=== PATIENT | male | born 1970 | race Caucasian/White ===

== ENCOUNTER 2021-03-26 08:48 | Outpatient (CLI) | payer OTHER, SELFPAY ==
--- NOTE | ~2021-03-26 | XR_ITS ---
XR chest 2V DATE: 03/26/2021 09:13 INDICATION: Dyspnea. History of Covid infection. TECHNIQUE: PA and lateral views COMPARISON: 03/01/2005 PA and lateral chest FINDINGS: Heart size is borderline. No pulmonary infiltrate or consolidation, pleural effusion or pul monary vascular congestion or pneumothorax. No hilar or mediastinal mass or adenopathy is evident. De generative spurring of the thoracic spine. Diffuse osteopenia. IMPRESSION: No active disease Reviewed, dictated and finalized at location A. IMPRESSION: No active disease
--- NOTE | ~2021-03-26 | CT_ITS ---
EXAMINATION: CT abdomen pelvis w con INDICATION: Umbilical hernia TECHNIQUE: Computed tomographic images of the abdomen and pelvis were obtained after the administrati on of 100 cc of Omnipaque 350 intravenous contrast. The dose-length product (DLP) was 1672.26 mGy-cm. Automated exposure control and iterative reconstruction technique were employed. COMPARISON: None available FINDINGS: The lung bases are clear. The heart size is normal. Calcified coronary artery atheroscleros is is noted. Stones are present in the nondistended gallbladder. There is a 6 mm cyst of the liver. T he spleen, pancreas, and adrenal glands are normal. The right kidney is unremarkable. A 6 mm hypoatte nuating lesion of the No pathologically enlarged abdominal or pelvic lymph nodes are identified. Ther e is no free intraperitoneal gas or evidence of bowel obstruction. The appendix is normal. The cecum is located in the right upper quadrant. There is a [place] ventral hernia just above the umbilicus containing the transverse colon and part of the ascending colon. There is mild lumbar spondylosis. IMPRESSION: 1. [place] ventral hernia containing nonobstructed transverse colon and part of the ascending colon . Reviewed, dictated and finalized at location A. IMPRESSION: 1. [place] ventral hernia containing nonobstructed transverse colon and part of the ascending colon.
--- NOTE | ~2021-03-26 | XR_ITS ---
XR foot RT min 3V DATE: 03/26/2021 09:13 INDICATION: Right foot pain, posterior plantar pain. TECHNIQUE: 4 views COMPARISON: None FINDINGS: Mild plantar and posterior calcaneal enthesopathy. No recent fracture or dislocation, perio steal reaction or bone destruction. There is chronic flattening of the head of the second and to a lesser extent third metatarsal bones. IMPRESSION: Mild plantar and posterior calcaneal enthesopathy Reviewed, dictated and finalized at location A.
== END 2021-03-26 08:49 | disposition home or self-care (01) ==
LOC: ANHIMG 08:55
PROVIDERS: PCP Family Medicine; Visit Provider Family Medicine
DX: K42.9 Umbilical hernia without obstruction or gangrene (principal); K43.9 Ventral hernia without obstruction or gangrene; M77.31 Calcaneal spur, right foot; R06.00 Dyspnea, unspecified; Z86.16 Personal history of COVID-19
CPT/HCPCS: 71046; 73630; 74177; Q9967

== ENCOUNTER 2021-04-08 07:34 | Outpatient (CLI) | payer OTHER, SELFPAY ==
--- NOTE | 2021-04-08 | ECHO_ITS ---
Patient Info Name: Jamar Iraheta Age: 50 years : 1970 Gender: Male Ht: 76 in Wt: 350 lbs BSA: 2.98 m2 HR: 68 bpm BP: 154 / 103 mmHg Technical Quality: Fair Exam Date: 04/08/2021 7:57 AM Exam Location: [facility] Patient Status: Outpatient Admit Date: 04/08/2021 Staff Ordering Physician: Merry, Ioana Mcghee MD Pipe Assembly Worker: Roro Felipe RDCS Attending Provider: Merry, Ioana Mcghee MD Referring Physician: Merry SANTOS; Exam Type: CA echo doppler color flow Study Info Indications R06.00 - Dyspnea, unspecified Complete two-dimensional, color flow and Doppler transthoracic echocardiogram is performed. Summary 1. Complete two-dimensional, color flow and Doppler transthoracic echocardiogram is performed. 2. Left ventricular systolic function is normal, estimated at 60-65%. 3. The left ventricular diastolic function is grade I diastolic dysfunction. 4. There is mild mitral valve regurgitation. 5. There is mild tricuspid valve regurgitation. 6. No pulmonary hypertension, estimated pulmonary arterial systolic pressure is 22 mmHg. 7. There is mild pulmonic regurgitation. Left Ventricle Left ventricular chamber dimension is normal. Left ventricular systolic function is normal, estimated at 60-65%. There is no increased left ventricular wall thickness. Left ventricular septal wall motion is normal. The left ventricular diastolic function is grade I diastolic dysfunction. Right Ventricle Right ventricular chamber dimension is normal. Right ventricular systolic function is normal. Left Atria Left atrial chamber dimension is normal. Right Atria Right atrial chamber dimension is normal. Atrial Septum Intact interatrial septum visualized by color flow imaging. Aortic Valve The aortic valve is trileaflet. There is no aortic valve sclerosis. There is no aortic valve stenosis. There is no aortic valve regurgitation. Pulmonic Valve The pulmonic valve is normal. There is no pulmonic valve stenosis. There is mild pulmonic regurgitation. Mitral Valve The mitral valve has normal leaflets. There is no mitral valve stenosis. There is mild mitral valve regurgitation. Tricuspid Valve The tricuspid valve leaflets are normal. There is no significant tricuspid valve stenosis. There is mild tricuspid valve regurgitation. No pulmonary hypertension, estimated pulmonary arterial systolic pressure is 22 mmHg. Pericardium/Pleural The pericardium appears normal. There is no pericardial effusion. Inferior Vena Cava Normal inferior vena cava with >50% collapse upon inspiration consistent with normal right atrial pressure, 5 mmHg. Aorta The aortic root size at the sinus of Valsalva is normal. The prox ascending aorta size is normal. Left Ventricular Outflow Tract Name Value Normal LVOT 2D LVOT Diameter 2.2 cm LVOT Doppler LVOT Peak Gradient 4 mmHg LVOT Mean Gradient 2 mmHg LVOT VTI 20 cm LVOT VTI/AV VTI Ratio 0.9 LVOT Stroke Volume
== END 2021-04-08 07:35 | disposition home or self-care (01) ==
PROVIDERS: PCP Family Medicine; Visit Provider Family Medicine
DX: R06.00 Dyspnea, unspecified (principal)
CPT/HCPCS: 93306

== ENCOUNTER 2021-04-12 10:55 | Outpatient (CLI) | payer OTHER, SELFPAY | END 2021-04-12 10:56 | disposition home or self-care (01) | LOC: ANHAUDIO 10:56 | PROVIDERS: PCP Family Medicine; Visit Provider Family Medicine | DX: H90.3 Sensorineural hearing loss, bilateral (principal) | CPT/HCPCS: 92557; 92567 ==

== ENCOUNTER 2022-02-01 22:14 | Emergency (ER) | payer OTHER, MEDICAID, SELFPAY ==
[2022-02-01 22:36] VITALS: BP 119/59; PULSE 87; RESP 16; TEMP 36.8; O2SAT 98
[2022-02-02 00:36] VITALS: BP 148/98; PULSE 79; RESP 20; O2SAT 100
[2022-02-02 01:31] LABS: Basophils Percent Auto 0.5 % (0.2-1.2); Eosinophils Absolute Auto 0.1 K/mm3 (0-0.3); Eosinophils Percent Auto 1.7 % (0-4.4); Hematocrit 40.8 % (42.0-52.0); Hemoglobin 12.8 g/dL (14.0-18.0); Immature Granulocyte Absolute 0.02 K/mm3 (0.00-0.031); Immature Granulocyte Percent A 0.3 % (0-0.5); Lymphocytes Percent Auto 20.4 % (18.3-44.2); Mean Corpuscular HGB Conc 31.4 g/dl (32-36); Mean Corpuscular Hemoglobin 26.6 pg (26-34); Mean Corpuscular Volume 84.6 fl (80-100); Mean Platelet Volume 10.4 fl (7.4-10.4); Monocytes Absolute Auto 0.6 K/mm3 (0.1-0.6); Monocytes Percent Auto 7.8 % (2.6-8.5); Neutrophils Absolute Auto 5.5 K/mm3 (1.3-6.7); Neutrophils Percent Auto 69.3 % (45.5-73.1); Platelet Count Result 205 k/mm3 (150-375); Red Blood Count 4.82 M/mm3 (4.6-6.20); Red Cell Distribution Width 14.5 % (11.5-14.5); White Blood Count 7.9 K/mm3 (4.5-10.0)
[2022-02-02 01:39] LABS: Alanine Aminotransferase 26 U/L (6-50); Albumin Level 3.8 g/dL (3.5-5.1); Alkaline Phosphatase 103 U/L (38-126); Anion Gap 8 mmol/L (8-16); Aspartate Amino Transferase 22 U/L (17-59); Bilirubin,Total 0.4 mg/dL (0.2-1.3); Blood Urea Nitrogen 18 mg/dL (9-20); Calcium 8.9 mg/dL (8.4-10.2); Carbon Dioxide 28 mmol/L (22-30); Chloride 102 mmol/L (98-107); Estimated CRCL calculation 118 ml/min; Estimated Glomerular Filt Rate > 60; Glucose 104 mg/dL (65-110); Potassium 3.7 mmol/L (3.4-5.0); Sodium 138 mmol/L (137-145)
[2022-02-02 01:40] LABS: INR 1.1; Prothrombin Time 13.4 Seconds (11.1-14.7)
[2022-02-02 01:41] LABS: Partial Thromboplastin Time 30.1 SECONDS (22.3-36.8)
[2022-02-02 01:50] LABS: D Dimer 0.89 ug/mL (<0.48)
--- NOTE | 2022-02-02 01:55 | ED.GENADULT ---
HPI - General Adult General Chief complaint: Skin/Abscess/Foreign Body Stated complaint: insect bites Time Seen by Provider: 02/02/22 00:57 History of Present Illness HPI narrative: Patient is a 51-year-old male who presents ER with concerns for bug bites to his right desir. Noticed it tonight at work where he was feeling warm and flushed and itchy. He has splotches of red across her desir extending around towards posterior aspect of calf. reports he has had increased swelling of the affected leg over the last week. No chest pain or shortness of breath. No fevers or chills or sweats. No purulent discharge from the area. No previous history of cellulitis or heart failure or DVT. Related Data Allergies Allergy/AdvReac Type Severity Reaction Status Date / Time erythromycin base Allergy Unknown Unknown Verified 06/05/19 08:54 Review of Systems Review of Systems: All systems reviewed & are unremarkable except as noted in HPI and below Constitutional: Constitutional: Denies chills and Denies fever(s) ENT: Denies nasal congestion and Denies sore throat Cardiovascular: Cardiovascular: Denies chest pain, Denies rapid heart rate and Denies radiating jaw, neck or arm pain Respiratory: Respiratory: Denies cough and Denies dyspnea Integumentary/Breasts: Skin/Breast: Reports pruritus, Reports erythema and Reports rash PMFSH Past Medical History Medical History (Updated 02/02/22 @ 02:11 by Tim Mccarty MD) Healthy adult male Surgical History Surgical History (Updated 02/02/22 @ 02:05 by Tim Mccarty MD) H/O ventral hernia repair Social History Social History (Updated 06/05/19 @ 09:48 by Zuri Rose, TRANSPLANT IMMUNOLOGIST) Smoking status: Former smoker Tobacco type: cigarettes Alcohol intake: current Alcohol use details: socially Substance use: never Gender identity (if verbalized by the patient): Male Exam Narrative: GENERAL: Well-appearing, morbidly obese, and in no acute distress. HEAD: Normocephalic, atraumatic. CHEST: Clear to auscultation. No respiratory distress. HEART: Regular rate and rhythm. Normal peripheral pulses. ABDOMEN: Soft, nontender, large ventral hernia. EXTREMITIES: Normal range of motion. 2+ edema right greater than left. SKIN: Warm, dry. Cellulitic rash anterior right desir that is warm and blanches. NEURO: Alert and oriented x3. PSYCH: Normal mood and affect. Course Course Emergency Course: Cellulitis versus DVT. Discussed case with Carlene Lopez at Dr. Pearl's office. Patient will go for ultrasound the morning at 7 AM. They will follow-up results and prescribe anticoagulation if needed. Patient will receive Lovenox given the fact he has elevated D-dimer with unilateral leg swelling. Patient verbalized understanding of treatment plan. Cefuroxime here and for discharge. Vital Signs Vital signs: Vital Signs Temperature 98.2 F 02/01/22 22:36 Pulse Rate 87 02/01/22 22:36 Respiratory Rate 16 02/01/22 22:36 Blood Pressure 119/59 L 02/01/22 22:36 Pulse Oximetry 98 02/01/22 22:36 Oxygen Delivery Room Air 02/01/22 22:36 Temperature 98.2 F 02/01/22 22:36 Pulse Rate 79 02/02/22 00:36 Respiratory Rate 20 02/02/22 00:36 Blood Pressure 148/98 H 02/02/22 00:36 Pulse Oximetry 100 02/02/22 00:36 Oxygen Delivery Room Air 02/01/22 22:36 Medical Decision Making Vital Signs Vital Signs: Vital Signs Temperature 98.2 F 02/01/22 22:36 Pulse Rate 87 02/01/22 22:36 Respiratory Rate 16 02/01/22 22:36 Blood Pressure 119/59 L 02/01/22 22:36 Pulse Oximetry 98 02/01/22 22:36 Oxygen Delivery Room Air 02/01/22 22:36 Temperature 98.2 F 02/01/22 22:36 Pulse Rate 79 02/02/22 00:36 Respiratory Rate 20 02/02/22 00:36 Blood Pressure 148/98 H 02/02/22 00:36 Pulse Oximetry 100 02/02/22 00:36 Oxygen Delivery Room Air 02/01/22 22:36 Lab Data Result diagrams: 02/02/22 01:21
[2022-02-02] MEDS: ENOXAPARIN 120 MG/0.8 ML SYRINGE 168 MG SUB-Q (02:13)
[2022-02-02] MEDS: CEFUROXIME AXETIL 250 MG TABLET 500 MG PO (02:18)
[2022-02-02 02:23] VITALS: BP 122/82; PULSE 80; RESP 21; O2SAT 100
== END 2022-02-02 02:23 | disposition home or self-care (01) ==
PROVIDERS: Emergency Provider Emergency Medicine; PCP Family Medicine
DX: L03.115 Cellulitis of right lower limb (principal); Z87.891 Personal history of nicotine dependence
CPT/HCPCS: 36415; 80053; 85025; 85380; 85610; 85730; 96372; 99283; A9270; J1650

== ENCOUNTER 2022-02-02 07:07 | Outpatient (CLI) | payer OTHER, MEDICAID, SELFPAY ==
--- NOTE | ~2022-02-02 | US_ITS ---
EXAMINATION: US venous doppler LE RT DATE: 02/02/2022 07:42 INDICATION: Other specified soft tissue disorders. Warmth and unspecified erythematous condition at t he right lower limb. TECHNIQUE: Grayscale ultrasound images without and with compression and Doppler ultrasound images of the right lower extremity veins were obtained. COMPARISON: None. FINDINGS: The visualized portions of right common femoral vein, profunda (deep) femoral vein, femoral vein, pop liteal vein, peroneal trunk, posterior tibial veins, peroneal veins, gastrocnemius vein and greater s aphenous vein outflow are patent. No abnormal masses or fluid collections identified at the region of skin discoloration at the right desir. IMPRESSION: 1. No deep venous thrombosis in the right lower limb. Reviewed, dictated and finalized at location A.
== END 2022-02-02 07:08 | disposition home or self-care (01) ==
PROVIDERS: PCP Family Medicine; Visit Provider Family Medicine
DX: M79.89 Other specified soft tissue disorders (principal)
CPT/HCPCS: 93971

== ENCOUNTER 2022-06-06 10:02 | Emergency (ER) | payer OTHER, MEDICAID, SELFPAY ==
[2022-06-06 10:13] VITALS: BP 147/101; PULSE 93; RESP 16; TEMP 36.8; O2SAT 98
--- NOTE | 2022-06-06 10:56 | ED.URI ---
HPI - URI/Sore Throat General Chief Complaint: Upper Respiratory Infection Stated Complaint: Headache, Running Nose, Cough Source: patient Mode of arrival: ambulatory Limitations: no limitations History of Present Illness HPI Narrative: 51-year-old male presents to [facility] with complaints of rapid onset of cough, congestion, runny nose, bodyaches, chills, headache and fever since yesterday. Patient has been taking [id number] DayQuil, NyQuil, Motrin and Tylenol family. Patient is COVID vaccinated. Patient denies sick contacts. Patient is a nonsmoker MD elicited complaint: fever, cough, rhinorrhea and nasal congestion Onset (ago): day(s) (1) Able to tolerate fluids by mouth: Yes Exacerbating factors: nothing Relieving factors: nothing Treatments prior to arrival: acetaminophen and ibuprofen Related Data Home Medications Medication Instructions Recorded Confirmed No Home Medications 06/06/22 06/06/22 Allergies Allergy/AdvReac Type Severity Reaction Status Date / Time erythromycin base Allergy Unknown Unknown Verified 06/05/19 08:54 Review of Systems Constitutional: Constitutional: Reports chills, Reports fatigue, Reports fever(s) and Denies weakness ENT: Denies vertigo, Denies dizziness and Reports nasal congestion Cardiovascular: Cardiovascular: Denies chest pain Respiratory: Respiratory: Reports cough, Denies dyspnea and Denies wheezing Gastrointestinal: Gastrointestinal: Denies abdominal pain, Denies diarrhea, Denies nausea and Denies vomiting Integumentary/Breasts: Skin/Breast: Denies rash Neurologic: Denies vertigo and Denies dizziness Allergic/Immunologic: Allergic/Immunologic: Denies throat swelling, Denies tongue swelling and Denies wheezing PMFSH Past Medical History Medical History Healthy adult male Surgical History Surgical History H/O ventral hernia repair Social History Social History Smoking status: Former smoker Tobacco type: cigarettes Alcohol intake: current Alcohol use details: socially Substance use: never Gender identity (if verbalized by the patient): Male Comments At time of signature, I agree with nursing past medical, surgical, social and family history. There is no relevant family history pertinent to the presenting complaint. Exam Const: General: healthy appearing and no acute distress Nutritional Appearance: well nourished Orientation/consciousness: patient oriented x3 Limitations: no limitations HENMT: Head: normal to inspection Ears: external ears normal and TM's normal bilaterally Face/Nose/Sinus: Normal external nose present and Normal nares present Face and sinus: normal facial exam Mouth: Yes Normal oral and palatal mucosa present and Yes lip normal Throat: posterior oropharynx normal and uvula midline Eyes: Conjunctivae: conjunctivae normal Resp: Effort & Inspection: normal respiratory effort and not labored Auscultation: clear to auscultation bilaterally, no crackles, no rales, no rhonchi and no wheezes Cardio: Rate: regular rate Rhythm: regular rhythm Heart sounds: no murmurs Skin: General skin exam: normal color Rashes: no rashes Wounds: no wounds Neuro: General: patient oriented x3 Speech: normal speech Gait exam (Neuro): Normal gait present Psych: Affect: normal affect Attitude: cooperative Course Course Level of Care: Express Care Visit Vital Signs Vital signs: Vital Signs Temperature 36.8 C 06/06/22 10:13 Pulse Rate 93 06/06/22 10:13 Respiratory Rate 16 06/06/22 10:13 Blood Pressure 147/101 H 06/06/22 10:13 Pulse Oximetry 98 06/06/22 10:13 Oxygen Delivery Room Air 06/06/22 10:13 Temperature 36.8 C 06/06/22 10:13 Pulse Rate 93 06/06/22 10:13 Respiratory Rate 16 06/06/22 10:13 Blood Pressure 147/101 H 05/19
== END 2022-06-06 11:07 | disposition home or self-care (01) ==
PROVIDERS: Emergency Provider Nurse Practitioner Family; PCP Family Medicine
DX: U07.1 COVID-19 (principal); Z87.891 Personal history of nicotine dependence
CPT/HCPCS: 87426; 99213; C9803; G0463

== ENCOUNTER 2022-08-07 09:28 | Emergency (ER) | payer OTHER, MEDICAID, SELFPAY ==
--- NOTE | 2022-08-07 09:36 | ED.SKABFB ---
HPI - Skin/Abscess/Foreign Bdy General Chief complaint: Skin/Abscess/Foreign Body Stated complaint: Rash Time Seen by Provider: 08/07/22 09:42 Source: patient, RN notes reviewed and old records reviewed Mode of arrival: ambulatory Limitations: no limitations History of Present Illness HPI narrative: 52-year-old presents to the [facility] with complaints of a rash to right lateral tract chest, right posterior thigh and starting in the left axilla area Area of the left axilla is approximately 7 cm with multiple red raised areas that are not hot to touch. Left axilla has 1 area of red raised 1.5 cm. Right posterior upper multiple red raised areas, not to touch, no vesicular areas measuring 3 cm in diameter. Patient reports that goes away when he actually takes a shower. Related Data Allergies Allergy/AdvReac Type Severity Reaction Status Date / Time erythromycin base Allergy Unknown Unknown Verified 08/07/22 09:50 Review of Systems Review of Systems: All systems reviewed & are unremarkable except as noted in HPI and below Constitutional: Constitutional: Reports no additional constitutional complaints Eyes: Eyes: Reports no additional eye complaints ENT: Reports system reviewed and no additional complaints, except as documented Cardiovascular: Cardiovascular: Reports no additional cardiovascular complaints, Denies chest pain and Denies dyspnea Respiratory: Respiratory: Reports no additional respiratory complaints, Denies chest congestion, Denies cough and Denies dyspnea Gastrointestinal: Gastrointestinal: Reports no additional gastrointestinal complaints, Denies abdominal pain, Denies nausea and Denies vomiting Musculoskeletal: Musculoskeletal: Reports no additional musculoskeletal complaints Integumentary/Breasts: Skin/Breast: Reports as per HPI and Reports rash Neurologic: Reports system reviewed and no additional complaints, except as documented Psychiatric: Psychiatric: Reports no additional psychiatric complaints Allergic/Immunologic: Allergic/Immunologic: Reports no additional allergic/immunologic complaints PENDING SALE TO [facility] Past Medical History Medical History Healthy adult male Surgical History Surgical History H/O ventral hernia repair Social History Social History Smoking status: Former smoker Tobacco type: cigarettes Alcohol intake: current Alcohol use details: socially Substance use: never Living arrangements: with family Gender identity (if verbalized by the patient): Male Comments At the time of my signature, I reviewed and agree with the nursing past medical, surgical, social, and family history. There is no relevant family history pertinent to the patient complaint. Exam Const: General: cooperative, healthy appearing, comfortable, no acute distress, well developed, alert and well nourished Nutritional Appearance: well nourished and obese Orientation/consciousness: patient oriented x3 Limitations: no limitations HENMT: Head: normal to inspection Ears: hearing grossly normal bilaterally and external ears normal Face/Nose/Sinus: Normal external nose present, Normal nares present, Normal nasal mucous membranes and turbinates present and normal facial exam Face and sinus: normal facial exam Mouth: Yes Normal oral and palatal mucosa present, Yes lip normal and Yes moist mucous membranes Throat: posterior oropharynx normal and uvula midline Eyes: General: appearance normal, both eyes and all related structures Alignment and Position: alignment normal Periorbital: periorbital findings normal Conjunctivae: conjunctivae normal Pupils: Equal, round and reactive pupils present EOM: EOMs intact bilaterally Neck: Neck: normal visual inspection, full ROM, no lymphadenopathy and no meningeal signs Chest: Chest palpation & inspection: gonzalo
[2022-08-07 09:39] VITALS: BP 139/97; PULSE 73; RESP 18; TEMP 36.3; O2SAT 96
== END 2022-08-07 09:58 | disposition home or self-care (01) ==
PROVIDERS: Emergency Provider Nurse Practitioner; PCP Family Medicine
DX: R21 Rash and other nonspecific skin eruption (principal); Z87.891 Personal history of nicotine dependence
CPT/HCPCS: 99213; G0463

== ENCOUNTER 2023-07-09 12:14 | Emergency (ER) | payer OTHER, MEDICAID, SELFPAY ==
[2023-07-09 13:05] VITALS: BP 146/101; PULSE 86; RESP 20; TEMP 37.2; O2SAT 97
--- NOTE | 2023-07-09 13:26 | ED.GENADULT ---
HPI - General Adult General Chief complaint: Upper Respiratory Infection Stated complaint: Cough Source: patient Mode of arrival: ambulatory Limitations: no limitations History of Present Illness HPI narrative: Patient presents for evaluation of sick symptoms. He indicates he recently had a sinus infection and completed Augmentin last week. Yesterday he developed a cough, shortness of breath during coughing episodes, pleuritic chest discomfort only when coughing, scratchy throat and some ear discomfort. His is being evaluated here for similar symptoms. He is a former smoker. He took nyquil for his symptoms. Related Data Allergies Allergy/AdvReac Type Severity Reaction Status Date / Time erythromycin base Allergy Unknown Unknown Verified 07/09/23 13:35 Review of Systems Review of Systems: CONSTITUTIONAL: Denies fever, chills, or sweats. EYES: Denies visual changes, redness, or discharge. ENT: Reports scratchy throat, ear discomfort and postnasal drainage. CARDIOVASCULAR: Reports pleuritic chest discomfort. Denies chest pain otherwise. Denies palpitations, or edema. RESPIRATORY: Reports cough and SOB during coughing episodes GASTROINTESTINAL: Denies abdominal pain, nausea, vomiting, or diarrhea. GENITOURINARY: Denies dysuria or hematuria. SKIN: Denies rash or itching. MUSCULOSKELETAL: Denies back pain, joint pain, or myalgia. NEUROLOGIC: Denies headache, numbness, dizziness, or weakness. PSYCHIATRIC: Denies anxiety or depression. PMFSH Past Medical History Medical History Healthy adult male Surgical History Surgical History H/O ventral hernia repair Family History Family History Mother Family history non-contributory Social History Social History Smoking status: Former smoker Tobacco type: cigarettes Alcohol intake: current Alcohol use details: socially Substance use: never Living arrangements: with family Gender identity (if verbalized by the patient): Male Exam Narrative: GENERAL: Well-appearing, well-nourished, and in no acute distress. HEAD: Normocephalic, atraumatic. EYES: PERRLA and EOMI. ENT: Nares clear, no rhinorrhea or epistaxis. Mucous membranes moist. Oropharynx without tonsillar hypertrophy exudate or other lesions. Bilateral TMs pearly deleon nonbulging NECK: Supple. No adenopathy or masses. No carotid bruits or JVD CHEST: Clear to auscultation. No respiratory distress. No wheezes rales or rhonchi HEART: Regular rate and rhythm. No murmur heard. Normal peripheral pulses. ABDOMEN: Soft, nontender, nondistended, normal active bowel sounds. EXTREMITIES: Normal range of motion. No edema. SKIN: Warm, dry, no rash. NEURO: No focal deficits. Alert and oriented x3. PSYCH: Normal mood and affect. Course Course Emergency Course: This is a 53-year-old male who presents for evaluation of sick symptoms. Influenza, COVID, strep were all negative. Exam is consistent with acute viral syndrome. He requested albuterol inhaler. Other OTC meds as needed. Follow up with primary provider. Go to the ER for worsening symptoms. Follow up with primary provider this week. Pt in agreement with plan of care. Level of Care: Express Care Visit Vital Signs Vital signs: Vital Signs Temperature 37.2 C 07/09/23 13:05 Pulse Rate 86 07/09/23 13:05 Respiratory Rate 20 07/09/23 13:05 Blood Pressure 146/101 H 07/09/23 13:05 Pulse Oximetry 97 07/09/23 13:05 Oxygen Delivery Room Air 07/09/23 13:05 Temperature 37.2 C 07/09/23 13:05 Pulse Rate 86 07/09/23 13:05 Respiratory Rate 20 07/09/23 13:05 Blood Pressure 146/101 H 07/09/23 13:05 Pulse Oximetry 97 07/09/23 13:05 Oxygen Delivery Room Air 07/09/23 13:0
== END 2023-07-09 14:06 | disposition home or self-care (01) ==
PROVIDERS: Emergency Provider Nurse Practitioner; PCP Family Medicine
DX: J06.9 Acute upper respiratory infection, unspecified (principal); Z20.822 Contact with and (suspected) exposure to COVID-19; Z87.891 Personal history of nicotine dependence
CPT/HCPCS: 87081; 87426; 87804; 87880; 99213; G0463

== ENCOUNTER → 2023-08-10 08:16 | Outpatient (CLI) | payer OTHER, SELFPAY ==
--- NOTE | ~2023-08-10 | MMUS_ITS ---
EXAMINATION: MM diagnostic merced BI w hollie, US axilla RT HISTORY: Palpable right axillary mass. Mother history of breast cancer. TECHNIQUE: Additional 3-D tomosynthesis images of the breasts were performed and synthetic 2-D images were generated. CAD analysis was submitted and interpreted. High resolution right axillary ultrasoun d was performed. COMPARISON: None BREAST PARENCHYMAL COMPOSITION: Not dense: There are scattered areas of fibroglandular density. FINDINGS: MAMMOGRAPHIC FINDINGS: There is a large right axillary mass, consistent with lymphadenopathy. Mild gynecomastia. No suspicio us breast masses. No abnormal calcifications or architectural distortion. ULTRASOUND: Right axillary ultrasound: Large complex right axillary mass which is predominantly hypoechoic with e nhanced through transmission and internal vascularity. This mass measures 10.7 x 8.7 x 5.5 cm IMPRESSION: 1. Complex right axillary mass measuring 10.7 cm, likely pathologic lymph node. 2. Right axillary biopsy recommended. BI-RADS category 4, suspicious findings. Reviewed, dictated and finalized at location A. T DOUGH MIXER IMPRESSION: 1. Complex right axillary mass measuring 10.7 cm, likely pathologic lymph node. 2. Right axillary biopsy recommended. BI-RADS category 4, suspicious findings.
--- NOTE | ~2023-08-10 | CT_ITS ---
Non-contrast CT scan of the Abdomen and Pelvis Clinical indication: Incisional hernia Technique: 2.5 mm axial scans were obtained through the abdomen and pelvis without intravenous or or al contrast. Dose reduction technique was used on this scan by utilizing automated exposure control a nd iterative reconstruction technique. The dose-length product (DLP) was 1196.57 mGy-cm. COMPARISON: 03/26/2021 Findings: Images through the lung bases reveal no abnormalities. There is no evidence of renal or ureteral calculi. The kidneys and the ureters are nondilated. The liver, spleen, pancreas, and adrenals appear normal. Calcified gallstone present. There is no aor tic aneurysm. There is a large ventral hernia containing most of the transverse colon as well as large amount of me senteric fat. No bowel wall thickening of bowel obstruction evident. Images through the pelvis were performed. There is no evidence of ascites or lymphadenopathy. Urinary bladder unremarkable. No pelvic mass seen. Impression: Large ventral hernia containing most of the transverse colon and large amount of mesenteric fat, toi lar to prior exam. No bowel obstruction or bowel wall thickening evident. Cholelithiasis. Reviewed, dictated and finalized at [facility]. RAMMER OPERATOR NUMERICAL CONTROL Impression: Large ventral hernia containing most of the transverse colon and large amount o f mesenteric fat, similar to prior exam. No bowel obstruction or bowel wall thi ckening evident. Cholelithiasis.
== END ==
PROVIDERS: PCP Surgery; Visit Provider Surgery
DX: K43.2 Incisional hernia without obstruction or gangrene (principal); R92.8 Other abnormal and inconclusive findings on diagnostic imaging of breast; K80.20 Calculus of gallbladder without cholecystitis without obstruction
CPT/HCPCS: 74176; 76882; 77062; 77066; G0279

== ENCOUNTER 2023-08-25 10:01 | Outpatient (CLI) | payer OTHER, SELFPAY ==
--- NOTE | ~2023-08-25 | US_ITS ---
EXAMINATION: US_BXSTAXLIMG_US DATE: 08/25/2023 11:41 INDICATION: Localized swelling, mass or lump at the right axilla TECHNIQUE: The procedure including the risks and benefits was discussed with the patient. Risks discu ssed included bleeding and infection. The patient understood the risks and agreed to proceed. The sk in overlying the right axilla was prepped and draped in usual sterile fashion. Anesthetic was admini stered with 1% lidocaine subcutaneously. An 14 gauge core biopsy needle was advanced under continuou s ultrasound observation to the lesion of interest. 6 core biopsy specimens were obtained, 2 placed in formalin and 4 in RPMI media. The needle was removed and the entry site was cleaned and dressed. Post procedure ultrasound demonstrated no hemorrhage. FINDINGS: Ultrasound images demonstrate a 10.3 x 5.8 x 9.6 cm hypoechoic right axillary mass. Subsequ ent images centered biopsy needle advanced into the mass.. IMPRESSION: 1. Successful Ultrasound-guided biopsy of a 10.3 cm right axillary mass concerning for lymphoma or me tastatic disease. Reviewed, dictated and finalized at location A. NE STRUCTURAL WELDER IMPRESSION: 1. Successful Ultrasound-guided biopsy of a 10.3 cm right axillary mass concern ing for lymphoma or metastatic disease.
== END 2023-08-25 10:02 | disposition home or self-care (01) ==
PROVIDERS: PCP Surgery; Visit Provider Surgery
DX: C85.15 Unspecified B-cell lymphoma, lymph nodes of inguinal region and lower limb (principal)
CPT/HCPCS: 20999; 76942; 88305; 88341; 88342; 88360; 88365

== ENCOUNTER 2025-04-24 18:36 | Emergency (ER) | payer OTHER, SELFPAY ==
--- NOTE | ~2025-04-24 | CT_ITS ---
CT ABDOMEN AND PELVIS WITHOUT CONTRAST Clinical History: UTI, eval stones Comparison: CT abdomen pelvis 08/10/2023 Technique: Unenhanced axial images lung bases to symphysis pubis Coronal, sagittal reformats CT images acquired with automatic exposure control for dose reduction DLP: 1702 mGy-cm Findings: Without intravenous contrast, sensitivity for detecting visceral parenchymal abnormalities decreased. Lung bases: Clear. Visualized heart and pericardium: Unremarkable. Liver: Enlarged. Steatosis. Suspect cirrhosis Gallbladder: Stones. Spleen: Unremarkable. Pancreas: Unremarkable. Adrenal glands: Unremarkable. Kidneys: Right kidney- No hydronephrosis. No renal stones. Left kidney- No hydronephrosis. No renal stones. Distal esophagus/stomach: Unremarkable. Small bowel loops: Normal caliber and wall thickness. Colon: Normal caliber and wall thickness. Normal RLQ appendix. Nodes: No enlarged nodes. Peritoneum: No ascites. No free intraperitoneal air. Urinary bladder: Unremarkable. Prostate: Unremarkable. Bones: No acute bony abnormality. Soft tissues: Large ventral hernia containing fat and transverse colon. Unopacified abdominal aorta: No aneurysmal dilatation. IMPRESSION: 1. No acute abnormality. 2. Findings as above. Reviewed, dictated and finalized at location R. [facility] AUDIOLOGIST
--- NOTE | 2025-04-24 18:55 | ED_ITS ---
HPI - Male Genitourinary General Chief complaint: Urogenital-Male <Nelli Millard PA-C - Last Filed: 04/26/25 14:37> Stated complaint: difficulty urinating, trouble with my ears <Nelli Millard PA-C - Last Filed: 04/26/25 14:37> Time Seen by Provider: 04/24/25 18:55 <Nelli Millard PA-C - Last Filed: 04/26/25 14:37> Focused HPI: This is a 54 year old male that presents to the ER for urinary symptoms. Reports dysuria, incontinence, urgency. Also reports sinus pain, otalgia. Reports a subjective fever. Denies abdominal pain, vomiting. GENERAL: Well-appearing, well-nourished, and in no acute distress. HEAD: Normocephalic, atraumatic. CHEST: Clear to auscultation. ?No respiratory distress. HEART: Regular rate and rhythm.? NEURO: ?Alert and oriented x3. Patient screened in triage and initial orders placed.? ?Additional care and disposition to be based upon?diagnostic testing and treatment. <Nelli Millard PA-C - Last Filed: 04/26/25 14:37> History of Present Illness HPI Narrative: agree with MSE. Patient is not sexually active. no concern STDs < Michael Wylie MD - Last Filed: 04/25/25 00:19> Related Data Home medications: Home Medications ?Medication ?Instructions ?Recorded ?Confirmed ?Last Taken ?Type cetirizine 10 mg capsule (All Day 10 mg PO DAILY PRN 0 08/02/23 08/04/23 Unknown History Allergy (cetirizine)) <Nelli Millard PA-C - Last Filed: 04/26/25 14:37> Allergies/Adverse reactions: Allergies Allergy/AdvReac Type Severity Reaction Status Date / Time erythromycin base Allergy Unknown Unknown Verified 04/24/25 19:12 <Nelli Millard PA-C - Last Filed: 04/26/25 14:37> Review of Systems 2 Review of Systems: All systems reviewed & are unremarkable except as noted in HPI and below <Nelli Millard PA-C - Last Filed: 04/26/25 14:37> PMFSH Past Medical History Medical History: Medical History Blood clot in leg After having COVID and taking Paxlovid in 2021 Healthy adult male <Nelli Millard PA-C - Last Filed: 04/26/25 14:37> Surgical History Surgical History: Surgical History H/O ventral hernia repair <Nelli Millard PA-C - Last Filed: 04/26/25 14:37> Family History Family History: Family History Mother Breast cancer in female <Nelli Millard PA-C - Last Filed: 04/26/25 14:37> Social History Social History: Social History Tobacco type: cigarettes Alcohol intake: current Alcohol use details: socially Substance use: never Living arrangements: with family Gender identity (if verbalized by the patient): Male <Nelli Millard PA-C - Last Filed: 04/26/25 14:37> Exam 2 Narrative: APPEARANCE: No apparent distress. Head: atraumatic. EYES: EOMI, NOSE: Atraumatic NECK: Trachea midline RESPIRATORY: No increased rate of breathing clear to auscultation CARDIOVASCULAR: RRR, ABDOMINAL: Non-distended obese, nontender no CVA tenderness MUSCULOSKELETAl: No obvious deformities NEURO: Alert. Moving 4/4 extremities SKIN:: Warm, dry. Normal color PSYCHIATRIC: Normal affect <Michael Wylie MD - Last Filed: 04/25/25 00:19> Course Vital Signs Vital signs: Vital Signs Temperature 98.7 F 04/24/25 19:05 Pulse Rate 90 04/24/25 19:05 Respiratory Rate 16 04/24/25 19:05 Blood Pressure 139/91 H 04/24/25 19:05 Pulse Oximetry 96 04/24/25 19:05 Oxygen Delivery Room Air 04/24/25 19:05 Temperature 98.7 F 04/24/25 19:05 Pulse Rate 85 04/24/25 23:10 Respiratory Rate 16 04/24/25 23:10 Blood Pressure 145/81 H 04/24/25 23:10 Pulse Oximetry 100 04/24/25 23:10 Oxygen Delivery Room Air 04/24/25 19:05 <Nelli Millard PA-C - Last Filed: 04/26/25 14:37> Vital Signs Temperature 98.7 F 04/24/25 19:05 Pulse Rate 90 04/24/25 19:05 Respiratory Rate 16 04/24/25 19:05 Blood Pressure 139/91 H 04/24/25 19:05 Pulse Oximetry 96 04/24/25 19:05 Oxygen Delivery Room Air 04/24/25 19:05 Temperature 98.7 F 04/24/25 19:05 Pulse Rate 85 04/24/25 23:10 Respiratory Rate 16 04/24/25 23:10 Blood Pressure 145/81 H 04/24/25 23:10 Pulse Oximetry 100 04/24/25 23:10 Oxygen Delivery Room Air 04/24/25 19:05 <Michael Wylie MD - Last Filed: 04/25/25 00:19> MDM - Male Genitourinary MDM Narrative Medical decision making narrative: -Course: 54-year-old male presenting with dysuria urgency frequency. Urine indicative infection. Patient treated with ceftriaxone and peridium. CT abdomen pelvis did not reveal any infected kidney stones. Patient discharged with appropriate medications and return precautions. -DDX includes but is not limited to: UTI, infected stone, STD <Michael Wylie MD - Last Filed: 04/25/25 00:19> Lab Data Result diagrams: 04/24/25 21:47 04/24/25 21:47 <Nelli Millard PA-C - Last Filed: 04/26/25 14:37> Labs: Lab Results 04/24/25 04/24/25 Range/Units 19:11 21:47 WBC 12.0 H (4.5-10.0) K/mm3 RBC 5.10 (4.6-6.20) M/mm3 Hgb 13.7 L (14.0-18.0) g/dL Hct 42.4 (42.0-52.0) % MCV 83.1 (80-100) fl MCH 26.9 (26-34) pg MCHC 32.3 (32-36) g/dl RDW 14.2 (11.5-14.5) % Plt Count 206 (150-375) k/mm3 MPV 10.0 (7.4-10.4) fl Immature Gran % (Auto) 0.5 (0-0.5) % Neut % (Auto) 79.6 H (45.5-73.1) % Lymph % (Auto) 10.4 L (18.3-44.2) % [place] % (Auto) 8.7 H (2.6-8.5) % Eos % (Auto) 0.5 (0-4.4) % Baso % (Auto) 0.3 (0.2-1.2) % Lymph # (Auto) 1.25 (0.9-3.2) K/mm3 [place] # (Auto) 1.0 H (0.1-0.6) K/mm3 Eos # (Auto) 0.1 (0-0.3) K/mm3 Baso # (Auto) 0.0 (0.0-0.1) K/mm3 Abs Immat Gran (auto) 0.06 H (0.00-0.031) K/mm3 Absolute Neuts (auto) 9.5 H (1.3-6.7) K/mm3 Absolute Nucleated RBC 0.000 (0.0-0.012) K/mm3 Nucleated RBC % 0.0 (0.0-0.2) % Sodium 132 L (137-145) mmol/L Potassium 3.8 (3.4-5.0) mmol/L Chloride 100 (98-107) mmol/L Carbon Dioxide 27 (22-30) mmol/L Anion Gap 5 (4-12) mmol/L BUN 14 (9-20) mg/dL Creatinine 0.89 (0.7-1.3) mg/dL Estim Creat Clear Calc 141 ml/min Estimated GFR > 60 (59 - ) Glucose 121 H (65-110) mg/dL Calcium 9.0 (8.4-10.2) mg/dL Total Bilirubin 1.8 H (0.2-1.3) mg/dL AST 22 (17-59) U/L ALT 26 (6-50) U/L Alkaline Phosphatase 119 (38-126) U/L Total Protein 7.1 (6.3-8.2) g/dL Albumin 4.0 (3.5-5.1) g/dL Lipase 30 (23-300) U/L Urine Color Dark yellow (Yellow) Urine Appearance Clear (Clear) Urine pH 6.5 (5.0-9.0) Ur Specific [place] 1.026 (1.001-1.035) Urine Protein 1+ H (Negative) mg/dL Urine Glucose (UA) Negative (Negative) mg/dL Urine Ketones Trace H (Negative) mg/dL Ur Blood (Man) 2+ H (Negative) Urine Nitrate Negative (Negative) Urine Bilirubin Negative (Negative) Urine Urobilinogen 1.0 (<2.0) mg/dL Leukocyte Esterase Rfl 3+ H (Negative) SOPHIA/UL Urine RBC 21-50 H (0-2) /hpf Urine WBC >100 H (0-3) /hpf Ur Squamous Epith Cells None seen (Few) /hpf Urine Bacteria None seen /hpf Urine Casts 0-2 Influenza A (RT-PCR) Negative (Negative) Influenza B (RT-PCR) Negative (Negative) RSV (RT-PCR) Negative (Negative) SARS-CoV-2 RNA (RT-PCR) Negative (Negative) <Nelli Millard PA-C - Last Filed: 04/26/25 14:37> Lab Results 04/24/25 04/24/25 Range/Units 19:11 21:47 WBC 12.0 H (4.5-10.0) K/mm3 RBC 5.10 (4.6-6.20) M/mm3 Hgb 13.7 L (14.0-18.0) g/dL Hct 42.4 (42.0-52.0) % MCV 83.1 (80-100) fl MCH 26.9 (26-34) pg MCHC 32.3 (32-36) g/dl RDW 14.2 (11.5-14.5) % Plt Count 206 (150-375) k/mm3 MPV 10.0 (7.4-10.4) fl Immature Gran % (Auto) 0.5 (0-0.5) % Neut % (Auto) 79.6 H (45.5-73.1) % Lymph % (Auto) 10.4 L (18.3-44.2) % [place] % (Auto) 8.7 H (2.6-8.5) % Eos % (Auto) 0.5 (0-4.4) % Baso % (Auto) 0.3 (0.2-1.2) % Lymph # (Auto) 1.25 (0.9-3.2) K/mm3 [place] # (Auto) 1.0 H (0.1-0.6) K/mm3 Eos # (Auto) 0.1 (0-0.3) K/mm3 Baso # (Auto) 0.0 (0.0-0.1) K/mm3 Abs Immat Gran (auto) 0.06 H (0.00-0.031) K/mm3 Absolute Neuts (auto) 9.5 H (1.3-6.7) K/mm3 Absolute Nucleated RBC 0.000 (0.0-0.012) K/mm3 Nucleated RBC % 0.0 (0.0-0.2) % Sodium 132 L (137-145) mmol/L Potassium 3.8 (3.4-5.0) mmol/L Chloride 100 (98-107) mmol/L Carbon Dioxide 27 (22-30) mmol/L Anion Gap 5 (4-12) mmol/L BUN 14 (9-20) mg/dL Creatinine 0.89 (0.7-1.3) mg/dL Estim Creat Clear Calc 141 ml/min Estimated GFR > 60 (59 - ) Glucose 121 H (65-110) mg/dL Calcium 9.0 (8.4-10.2) mg/dL Total Bilirubin 1.8 H (0.2-1.3) mg/dL AST 22 (17-59) U/L ALT 26 (6-50) U/L Alkaline Phosphatase 119 (38-126) U/L Total Protein 7.1 (6.3-8.2) g/dL Albumin 4.0 (3.5-5.1) g/dL Lipase 30 (23-300) U/L Urine Color Dark yellow (Yellow) Urine Appearance Clear (Clear) Urine pH 6.5 (5.0-9.0) Ur Specific [place] 1.026 (1.001-1.035) Urine Protein 1+ H (Negative) mg/dL Urine Glucose (UA) Negative (Negative) mg/dL Urine Ketones Trace H (Negative) mg/dL Ur Blood (Man) 2+ H (Negative) Urine Nitrate Negative (Negative) Urine Bilirubin Negative (Negative) Urine Urobilinogen 1.0 (<2.0) mg/dL Leukocyte Esterase Rfl 3+ H (Negative) SOPHIA/UL Urine RBC 21-50 H (0-2) /hpf Urine WBC >100 H (0-3) /hpf Ur Squamous Epith Cells None seen (Few) /hpf Urine Bacteria None seen /hpf Urine Casts 0-2 Influenza A (RT-PCR) Negative (Negative) Influenza B (RT-PCR) Negative (Negative) RSV (RT-PCR) Negative (Negative) SARS-CoV-2 RNA (RT-PCR) Negative (Negative) <Michael Wylie MD - Last Filed: 04/25/25 00:19> Imaging Data Radiologist's impression: ITS Impressions Abdomen/Pelvis CT 04/25/25 07:06 IMPRESSION: 1. No acute abnormality. 2. Findings as above. <Nelli Millard PA-C - Last Filed: 04/26/25 14:37> Discharge Plan Discharge Clinical Impression: Acute UTI <Nelli Millard PA-C - Last Filed: 04/26/25 14:37> Patient Disposition: Home <Nelli Millard PA-C - Last Filed: 04/26/25 14:37> Condition: Stable <Nelli Millard PA-C - Last Filed: 04/26/25 14:37> Instructions: Antibiotic Form, Urinary Tract Infection in Men (ED) <Nelli Millard PA-C - Last Filed: 04/26/25 14:37> Additional Instructions: Please complete the antibiotics as instructed. You can use Pyridium to ease the pain on urination. Follow-up your primary care physician in 3 days. If you are getting worse, develop fevers, nausea vomiting or flank pain return to the ED for re-evaluation. <Nelli Millard PA-C - Last Filed: 04/26/25 14:37> Patient Language: Arabic <Nelli Millard PA-C - Last Filed: 04/26/25 14:37> Prescriptions: New cefdinir 300 mg capsule 300 mg PO Q12H Qty: 14 0RF phenazopyridine [Pyridium] 200 mg tablet 200 mg PO TID Qty: 7 0RF No Action All Day Allergy (cetirizine) 10 mg capsule 10 mg PO DAILY PRN <Nelli Millard PA-C - Last Filed: 04/26/25 14:37> Follow-up/Referrals: Estefani,Abel Mendes MD [Primary Care Provider, Unknown] <Nelli Millard PA-C - Last Filed: 04/26/25 14:37>
[2025-04-24 19:05] VITALS: BP 139/91; PULSE 90; RESP 16; TEMP 37.1; O2SAT 96
[2025-04-24 19:21] LABS: Add Urine Microscopic? YES; Appearance Urine Clear (Clear); Glucose Urine UA Negative (Negative); Leukocyte Esterase Ur 3+ LEU/UL (Negative); Nitrate Urine Negative (Negative); Non Pathogenic Casts 0-2; Specific Grav Ur 1.026 (1.001-1.035)
--- OUTSIDE RECORDS SUMMARY | 2025-04-24 21:16 | XMS_ITS | Clinical Summary ---
Author Organization [facility] Address [address] [place] [id number] Care Team Providers Care Night Nurse Name Role Phone Unavailable Primary Care Provider Unavailabl e Social History Tobacco Use Types Packs/Day Years Used Date Smoking Tobacco: Never Assessed Sex and Gender Information Value Date Recorded Sex Assigned at Not on file Legal Sex Male 8:05 PM CDT Gender Identity Not on file Sexual Orientation Not on file Plan of Treatment Upcoming Encounters Date Type Department Care Team (Late st Contact Info) Description 07/01/2025 1:20 PM RESOLUTION ANALYST Office Visit [facility] Family Medicine - [facility] [address] [facility] [address] [place] [id number] Caro Hinds MD [address] [place] [id number] Health Maintenance Due Date Last Done Comments Colorectal Cancer Screening Colonoscopy (10 Years) 1969 Annual Physical 1972 Hepatitis C 1987 DTaP, Tdap and Td Vaccines ( 1 - Tdap) 1988 Hepatitis B Vaccines (1 of 3 - 19+ 3-dose series) 1988 Pneumococcal Vaccine: 50+ Ye ars (1 of 1 - PCV) 2019 Zoster Vaccines (1 of 2) 2019 COVID-19 Vaccine ( - 2024-2 6 season) 2025 Influenza Adult (#1) 2025 Hepatitis A Vaccines Aged Out No long er eligible based on patient's age to complete this topic Meningococcal B Vaccine Aged Out No l onger eligible based on patient's age to complete this topic Meningococcal Vaccine Aged Out No dulce maria johann eligible based on patient's age to complete this topic RSV Immunizations Under 20 Months Aged Out No longer eligible based on patient's age to complete this topic Insurance [facility]
--- OUTSIDE RECORDS SUMMARY | 2025-04-24 21:16 | XMS_ITS | Clinical Summary ---
Author Organization [facility] Address [address] [place] [id number] Care Team Providers Care Contract Serviceman Name Role Phone Ioana Sousa MD Primary Care Provider + Tony Whitehead MD Unavailable [phone] Allergies Active Allergy Reactions Criticality Noted Date Comments Tramadol Headache Low 01/03/2024 Patient refuses - gets a hangover after Medications cholecalciferol (VITAMIN D-3) 2000 unit capsule Take 1 capsule (2,000 Units total) by mouth daily 4 Active ferrous sulfate 325 mg (65 mg of elemental iron) tabletIndicatio ns:Iron Deficiency Anemia Take 1 tablet (325 mg total) by mouth 2 (two) times a day 4 Active Additional Information Patient not taking.Reported on 12/26/2024 fluticasone propionate (FLONASE) 50 mcg/actuation nasal spray Administer 2 sprays into each nostril daily 4 Active cetirizine (ZyrTEC) 10 mg tablet Take 1 tablet (10 mg total) by mouth daily after lunch Active acetaminophen ER (TYLENOL) 650 mg 8 hr tablet Take 1 tablet (650 mg total) by mouth every 8 (eight) hours as needed for pain Active oxyCODONE (ROXICODONE) 5 mg immediate release tabletIndicatio ns:Pain Take 1 tablet (5 mg total) by mouth every 4 (four) hours as needed for pain 25 tablet 5 Active cyclobenzaprine (FLEXERIL) 10 mg tablet Take 1 tablet (10 mg total) by mouth 2 (two) times a day as needed for muscle spasms 30 tablet 1 5 Active Active Problems Problem Noted Date Diagnosed Date Hemorrhoids 10/03/2024 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 Iron deficiency anemia 05/01/2024 Gastroesophageal reflux disease 05/01/2024 Neulasta for Neutropenia Prophylaxis 09/13/2023 Diffuse large B-cell lymphom a of lymph nodes of multiple regions 09/07/2023 Immunizations Immunization Administration Dates Next Due Hep B Vaccine 09/05/2001,03/21/2001,02/14/2001 Influenza, Quadrivalent, Maryjane l Culture-based MDCK, Preservative Free, Antibiotic Free, Intramuscular 03/26/2020 Influenza, Quadrivalent, Spl it, Preservative Free, Intramuscular 03/23/2022,03/23/2021 Surgical History Surgery Date Site/Laterality Comments HERNIA REPAIR 06/19/2004 - 06/18/2005 Medical History Medical History Date Comments Lymphoma (HCC) Anemia GERD (gastroesophageal reflux disease) Sleep apnea Morbid obesity (HCC) Deviated septum Family History Medical History Relation Name Comments Cancer Brother Lymphoma Brother Diabetes Maternal Grandmother Breast cancer Mother Anesthesia problems Neg Hx Relation Name Status Comments Brother Maternal Grandmother Mother Social History Tobacco Use Types Packs/Day Years Used Date Smoking Tobacco: Former Cigarettes 2 014 - 1985 Passive Smoke Exposure: Past Smokeless Tobacco: Never Tobacco Cessation:Counseling Given: Not Answered AUDIT-C Answer Date Recorded Q1: How often do you have a drink containing alcohol? Never 11/12/2024 Q2: How many drinks containi ng alcohol do you have on a typical day when you are drinking? Patient does not drink Q3: How often do you have si x or more drinks on one occasion? Never 11/12/2024 Personal Safety Answer Date Recorded Have you ever been in or are you currently in a harmful physical or emotional relationship or is someone making you feel afraid or unsafe? Denies 11/18/2024 Sex and Gender Information Value Date Recorded Sex Assigned at Not on file Legal Sex Male 7:53 AM CDT Gender Identity Not on file Sexual Orientation Not on file Last Filed Vital Signs Vital Sign Reading Time Taken Comments Blood Pressure 137/84 12/26/2024 7:45 AM CDT Pulse 78 12/26/2024 7:45 AM CDT Temperature 36.6 C (97.8 F) 12/26/2024 7:45 AM CDT Respiratory Rate 18 12/26/2024 7:45 AM CDT Oxygen Saturation 95% 12/26/2024 7:45 AM CDT Inhaled Oxygen Concentration - - Weight 174.3 kg (384 lb 3.2 oz) 12/26/2024 7:45 AM CDT Height 193 cm (6' 3.98) 12/26/2024 7:51 AM CDT Body Mass Index 46.79 12/26/2024 7:45 AM CDT Plan of Treatment Scheduled Procedures Name Priority Associated Diagnoses Date/Ti me COLONOSCOPY Open Access Iron deficiency anemia, unspecified iron deficiency anemia type Gastroesophageal reflux disease, unspecified whether esophagitis present ESOPHAGOGASTRODUODENOSCOPY Open Access Iron deficiency anemia, unspecified iron deficiency anemia type Gastroesophageal reflux disease, unspecified whether esophagitis present ESOPHAGOGASTRODUODENOSCOPY Open Access Iron deficiency anemia, unspecified iron deficiency anemia type Gastroesophageal reflux disease, unspecified whether esophagitis present Health Maintenance Due Date Last Done Comments Colon Cancer Screening-Colonoscopy 1969 Depression Screening 1969 Prostate Cancer Screening-PSA 1969 DTaP/Tdap/Td Vaccine (1 - Tdap) 1980 Regular Well Visit/Exam 18-64 1987 Pneumococcal vaccine <65 (1 of 2 - PCV) 1988 Zoster Vaccine (1 of 2) 1988 Covid-19 Vaccine (3 - Modern a risk series) 11/30/2020 11/02/2020, 10/05/2020 Influenza Vaccine (#1) 2025 2, 03/23/2021, 03/26/2020 Hepatitis B Screening Completed 09/05/2001 , 03/21/2001, 02/14/2001 Hepatitis C Screening Completed 09/07/2023 Procedures Procedure Name Priority Date/Time Associated Diagnosis Comments HEPATITIS C ANTIBODY Routine 09/07/2023 8:18 AM CDT Diffuse large B-cell lymphoma, unspecified body region (HCC) from Last 3 Months or Most Recently Relevant to Health Maintenance Results * Hepatitis C antibody Blood (09/07/2023 8:18 AM CDT) Hep C Ab Nonreactive Nonreactive Comment:Antibodies to HCV no t detected. Does NOT exclude the possibility of recent exposure to HCV. Current interpretive data was last revised on 22 Blood 09/07/2023 8:18 AM CDT 09/07/2023 8:50 AM CDT us Adelaida Loving MD LAB MICROBIOLOGY - GENERAL ORDERABLES Edited Result - Final [facility] Department [place] [address] from Last 3 Months or Most Recently Relevant to Health Maintenance Insurance [facility]/PPO Address: [place] [address] CIGNA ALLEGIANCE CIGNA ALLEGIANCE Care Teams Contract Serviceman Relationship Specialty Start Date End Date Ioana Sousa MD [address] [place] [address] [facility] [address] [place] [address] PCP - General Family Medicine 09/17/24 Tony Whitehead MD [address] [facility] [address] [place] [address] Consulting Physician Colon and Rectal Surgery 11/18/24
--- OUTSIDE RECORDS SUMMARY | 2025-04-24 21:16 | XMS_ITS | Clinical Summary ---
Author Organization [facility] Address [address] [place] [address] Care Team Providers Care Tail Worker Name Role Phone Unavailable Primary Care Provider Unavailabl e Social History Tobacco Use Types Packs/Day Years Used Date Smoking Tobacco: Never Assessed Sex and Gender Information Value Date Recorded Sex Assigned at Not on file Legal Sex Male 9:05 AM VISUAL LEAD Gender Identity Not on file Sexual Orientation Not on file Plan of Treatment Health Maintenance Due Date Last Done Comments Hepatitis C Virus (HCV) Screening 1969 TdaP Immunization 1969 Hepatitis B Immunization (1 of 3 - 19+ 3-dose series) 1988 Cologuard 2014 Colonoscopy 2014 Colorectal Cancer Screening 2014 Immunochemical Fecal Occult Blood 2014 Pneumococcal Immunization (5 0+ years) (1 of 1 - PCV) 2019 Zoster Immunization (1 of 2) 2019 Influenza Immunization (#1) 2025 SARS-COV-2 Immunization (1 - season) 2025 Respiratory Syncytial Virus (RSV) Immunization (Adult) (1 - 1-dose 75+ series) 2044 Human Papillomavirus (HPV) Immunization Aged Out No longer eligible b ased on patient's age to complete this topic Meningococcal Immunization (ACWY) Aged Out No longer eligible based on patient's age to complete this topic Rotavirus Immunization Aged Out No lo nger eligible based on patient's age to complete this topic
--- OUTSIDE RECORDS SUMMARY | 2025-04-24 21:16 | XMS_ITS | Encounter Summary ---
Author Organization [facility] Address [address] [place] [address] Care Team Providers Care Painter Railroad Car Name Role Phone Unavailable Primary Care Provider Unavailabl e Encounter Details Date Type Department Care Team (Late st Contact Info) Description 08/25/2023 Lab Requisition [facility] - Pathology Lab [address] [place] [address] Mario Ventura MD [address] [facility] [address] [place] [address] Epigastric swelling, mass or lump Social History Tobacco Use Types Packs/Day Years Used Date Smoking Tobacco: Never Assessed Sex and Gender Information Value Date Recorded Sex Assigned at Not on file Legal Sex Male 3:36 PM AUTO ACCESSORIES INSTALLER Gender Identity Not on file Sexual Orientation Not on file documented as of this encounter Plan of Treatment Not on file documented as of this encounter Procedures Procedure Name Priority Date/Time Associated Diagnosis Comments FLOW CYTOMETRY TISSUE PANEL Routine 08/25/2023 10:40 AM AUTO ACCESSORIES INSTALLER Epigastric swelling, mass or lump documented in this encounter Results * FLOW CYTOMETRY TISSUE PANEL (08/25/2023 10:40 AM AUTO ACCESSORIES INSTALLER) Case Report Flow Cytometry Case: [id number] Authorizing Provider: Mario Ventura Collected: 08/25/2023 10:40 AM MD John Ordering Location: [facility] - Received: 08/25/2023 03:40 PM Pathology Lab Pathologist: Jaimie Doyle MD Specimen: Arm Mass, RIGHT 08/25/2023 5:12 PM AUTO ACCESSORIES INSTALLER [facility] Final Diagnosis Right axillary mass, flow cytometric immunophenotypic analysis: - [id number] monoclonal B-cell population (62.4% of events) - See interpretation 08/25/2023 5:12 PM AUTO ACCESSORIES INSTALLER [facility] at [address] [facility] Flow Cytometry Interpretation Viability: 100% B-cells: The B-cells are monoclonal (lambda light chain-restricted) and express CD10, CD19, and CD20. They are negative for CD23, CD34, and CD30. This population comprises 62.4% of events. T-cells: no immunophenotypic aberrancy detected CD4:CD8 ratio 0.5:1 A cytospin prepared from the flow cytometry specimen has been reviewed for it quality analyst purposes. 08/25/2023 5:12 PM [facility] Flow Cytometry Results Differential Result Comment Flow Cell Count /uL 7,800 Total Viability % 100.0 Lymphocytes % 96 Dim CD45 Region % 1 Monocytes % 1 Granulocytes % 2 08/25/2023 5:12 PM [facility] Reason for test Epigastric swelling, mass or lump 789.36 08/25/2023 5:12 PM [facility] Client Specimen ID # [id number] 08/25/2023 5:12 PM [facility] Number of markers 16 were performed. A-2 Flow CD10 A-4 Flow CD20 A-5 Flow CD23 A-10 Flow CD2 A-11 Flow CD3 A-12 Flow CD4 A-16 Flow CD1a A-3 Flow CD19 A-6 Flow CD34 A-7 Flow CD45 A-13 Flow CD5 A-14 Flow CD7 A-15 Flow CD8 A-22 Flow CD30 A-8 Monsey+CD19+ A-9 Lambda+CD19+ 08/25/2023 5:12 PM [facility] Pathologist Location at [facility] 08/25/2023 5:12 PM [facility] Disclaimer Test performed at [facility], [address] [place] [address], [id number]. *The established laboratory minimum viability is 70%. Values below the minimum may result in the failure to find an abnormal population of cells. This test was developed and its performance characteristics determined by the Flow Cytometry Laboratory. It has not been cleared by the [place] Food and Drug Administration (FDA). The FDA has determined that such clearance or approval is not necessary. This test is used for clinical purposes. It should not be regarded as investigational or for research. This laboratory is regulated under the Clinical Laboratory Improvement Amendments of 1998 (CLIA) as a qualified to perform high complexity clinical testing. 08/25/2023 5:12 PM AUTO ACCESSORIES INSTALLER [facility] Embedded Images 5:12 PM AUTO ACCESSORIES INSTALLER [facility] Pathology/Cytolo gy SPECIMEN FROM MASS / Unknown 08/25/2023 10:40 AM AUTO ACCESSORIES INSTALLER 08/25/2023 3:40 PM AUTO ACCESSORIES INSTALLER Mario Ventura MD LAB - PATHOLOGY/CYT OLOGY ORDERABLES Final Result [facility] [address] [phone] documented in this encounter Visit Diagnoses Diagnosis Epigastric swelling, mass or lump Abdominal or pelvic swelling, mass, or lump, epigastric documented in this encounter
--- OUTSIDE RECORDS SUMMARY | 2025-04-24 21:16 | XMS_ITS | Encounter Summary ---
Author Organization [facility] Address [address] [facility] [place] [address] Care Team Providers Care Skinning Machine Feeder Name Role Phone Unavailable Primary Care Provider Unavailabl e Encounter Details Date Type Department Care Team (Late st Contact Info) Description 08/28/2023 Lab Requisition [facility] - Pathology Lab [address] [place] [address] Mario Ventura MD [address] [facility] [address] [place] [address] Illness, unspecified Social History Tobacco Use Types Packs/Day Years Used Date Smoking Tobacco: Never Assessed Sex and Gender Information Value Date Recorded Sex Assigned at Not on file Legal Sex Male 3:36 PM WHEEL INSPECTOR Gender Identity Not on file Sexual Orientation Not on file documented as of this encounter Plan of Treatment Not on file documented as of this encounter Procedures Procedure Name Priority Date/Time Associated Diagnosis Comments PATHOLOGY TISSUE Routine 08/25/2023 10:4 0 AM WHEEL INSPECTOR Illness, unspecified documented in this encounter Results * PATHOLOGY TISSUE (08/25/2023 10:40 AM WHEEL INSPECTOR) Case Report Surgical Pathology Report Case: [id number] Authorizing Provider: Mario Ventura Collected: 08/25/2023 10:40 AM MD John Ordering Location: [facility] - Received: 08/28/2023 12:39 PM Pathology Lab Pathologist: Umberto Sinha MD Specimen: Axillary Mass, Right axilla biopsy 08/30/2023 1:28 PM CDT [facility] Final Diagnosis Axillary mass, biopsy cores: - High-grade B-cell lymphoma, 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 Morphologically, features are reminiscent of Burkitt lymphoma or a double-hit lymphoma. Immunohistochemistry is performed to assess staining cells in an architectural context: Lymphoma cells are immunoractive for CD20, CD10 (weak), BCL6, MUM-1, and C-MYC. Faint staining is seen with BCL-2. The proliferation index, as assessed with Ki-67, approaches 100%. CD3 highlights few background T-lymphocytes. Overall findings are those of a high-grade B-cell lymphoma. The fluorescence in situ aggressive B-cell lymphoma panel will be ordered by the referring institution, [facility]. In case of a c-myc translocation only, this B-cell lymphoma is best classified as Burkitt lymphoma. If c-myc and bcl-2 or bcl-6 are translocated, then, this B-cell lymphoma is best categorized as double-hit lymphoma. 08/30/2023 1:28 PM T [facility] Clinical History Lymphadenopathy. 08/30/2023 1:28 PM [facility] Materials Received Received are 3 slide and 1 block (s) labeled [id number] along with a copy of the outside pathology report. [place] [address]. All original materials are returned to the referring institution, along with a copy of our final report. 08/30/2023 1:28 PM T [facility] Addendum 1 BRENT is negative. 024 1:28 PM T [facility] Addendum electronically signed by Umberto Sinha MD on 08/30/2023 at 1328 CDT Pathologist Location at [facility] 08/30/2023 1:28 PM CDT [facility] Disclaimer The performance characteristics of all immunohistochemical and indirect immunofluorescence stains (if any) cited in this report were determined by the Histopathology Laboratory of [facility]. Some of these tests were developed by our own laboratory and have not been cleared or approved by the US Food and Drug Administration. The FDA does not require this test to go through premarket FDA review. These tests are used for clinical purposes. They should not be regarded as investigational or for research. This laboratory is certified under the Clinical Laboratory Improvement Amendments (CLIA) as qualified to perform high complexity clinical laboratory testing. This case has been personally reviewed and interpreted by the attending (teaching) pathologist. 08/30/2023 1:28 PM CDT [facility] Embedded Images 08/30/2023 1:28 PM CDT [facility] Pathology/Cytolo gy SPECIMEN FROM MASS / Unknown 08/25/2023 10:40 AM WHEEL INSPECTOR 08/28/2023 12:39 PM CDT Mario Ventura MD LAB - PATHO LOGY/CYTOLOGY ORDERABLES Edited Result - Final [facility] [address] [phone] documented in this encounter Visit Diagnoses Diagnosis Illness, unspecified documented in this encounter
--- OUTSIDE RECORDS SUMMARY | 2025-04-24 21:16 | XMS_ITS ---
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 Past Treatment and Therapy Plans Oncology Chemotherapy Treatment Plan Name Start Date Discontinue Date Treatment Medications Discontinue Reason Plan Provider Cycles R-CHOP: RiTUXimab / Cyclophosphamide / DOXOrubicin (ADRIAMYCIN) / VinCRIStine / PredniSONE 21 Day Cycles - DLBCL 01/23/2024 cycloPHOSphamide IVPB in 250 mL (vial 200 mg/mL)(J9073)dexAM ETHasone (DECADRON)DOXOrubi jered (ADRIAMYCIN) 2 mg/mLriTUXimab-abb s (TRUXIMA) IVPB in 500 mLvinCRIStine (ONCOVIN) IVPB in 50 mL Therapy Complete Adelaida Loving MD 6 of 6 cycles started Oncology Supportive Care Therapy Plan Plan Name Start Date Discontinue Date Treatment Medications Discontinue Reason Plan Provider Solumedrol 09/21/2023 09/21/2023 No medications scheduled. Therapy Complete Adelaida Loving MD Radiation Treatments * Course [id number] 02/02/2024 - 02/26/2024 Treatment Period Energy Fraction Dose Fractions Total Dose Plans Planned RT AXILLA 02/02/2024 - 02/26/2024 200 15 / 3,000 Reference Points Delivered RT AXILLA_3000 02/02/2024 - 02/26/2024 3,000 Lifetime Dose Tracking * Chemical Lifetime Dose Automatic Entry Manual Entr y doxorubicin 295.526 mg/m2 (888 mg) 295.526 mg/m2 (888 mg) 0 mg/m2 (0 mg) cyclophosphamide 4,432.886 mg/m2 (13,320 mg) 4,432.886 mg/m2 (13,320 mg) 0 mg/m2 (0 mg) doxorubicin isotoxic equivalent (Please manually verify calculation) 295.526 mg/m2 (888 mg) 295.526 mg/m2 (888 mg) 0 mg/m2 (0 mg) DLP 1,874 mGycm 1,874 mGycm 0 mGycm
--- OUTSIDE RECORDS SUMMARY | 2025-04-24 21:16 | XMS_ITS | Clinical Summary ---
Author Organization [facility] [employer] Address [address] [place] [address] Care Team Providers Care Glass Production Machine Operator Name Role Phone Unavailable Primary Care Provider Unavailabl e Source Comments [facility],non-owned Affiliates and Associated Physician Practices is amultiple site organization consisting of ambulatory clinics and hospital sitesin [place], [place], [place] and [place]. This disclosure is being madepursuant to the Care Everywhere program and may not contain all information available regarding this patient. Last updated 18.[facility] Social History Tobacco Use Types Packs/Day Years Used Date Smoking Tobacco: Never Assessed Sex and Gender Information Value Date Recorded Sex Assigned at Not on file Legal Sex Male 3:36 PM REHABILITATION NURSE Gender Identity Not on file Sexual Orientation Not on file Plan of Treatment Health Maintenance Due Date Last Done Comments COLOGUARD (AGES 45-75) - COL ON CA SCREENING 1969 COLON MONITORING 1969 COLONOSCOPY - COLON CA SCREENING 1969 CT COLONOGRAPHY - COLON CA SCREENING 1969 Colorectal Cancer Screening 1969 FIT - COLON CA SCREENING 1969 FLEX SIG - COLON CA SCREENING 1969 LIPID TESTING 1969 HIV SCREENING 1984 HEPATITIS C SCREENING 06/22/1987 DTAP/TDAP/TD VACCINES (1 - Tdap) 1988 HEPATITIS B VACCINE (1 of 3 - 19+ 3-dose series) 1988 PNEUMOCOCCAL VACCINE 50+ (1 of 1 - PCV) 2019 ZOSTER VACCINE (1 of 2) 2019 DEPRESSION SCREENING 06/19/2024 COVID-19 VACCINE (1 - 2023-2 5 season) 2025 INFLUENZA VACCINE (#1) 2025 2, 03/23/2021, 03/26/2020 HIB VACCINE Aged Out No longer eligi ble based on patient's age to complete this topic HPV VACCINE Aged Out No longer eligi ble based on patient's age to complete this topic MENINGOCOCCAL (Group B) VACCINE SHARED DECISION-MAKING Aged Out No longer eligible based on patient's age to complete this topic MENINGOCOCCAL GROUPS A/C/Y/W VACCINE Aged Out No longer eligible b ased on patient's age to complete this topic Insurance SELF PAY NO INSURANCE Member Subscriber Plan / Payer (Ef fective for All Dates) Name:Swathi Iraheta Member ID:Not on file Relation to Subscriber:Self Name:Swathi Iraheta Subscriber ID:Not on file Payer ID:Not on file Group ID:Not on file Type:Self Pay Address: [place], [place] CIGNA SELF PAY NO INSURANCE Member Subscriber Plan / Payer (Ef fective for All Dates) Name:Swathi Iraheta Member ID:Not on file Relation to Subscriber:Not on file Name:SWATHI IRAHETA Subscriber ID:Not on file Address: [address] [place] [address] [place] [address] Payer ID:Not on file Group ID:Not on file Type:Self Pay Address: [place], [place] [address] CIGNA SELF PAY NO INSURANCE Member Subscriber Plan / Payer (Ef fective for All Dates) Name:Swathi Iraheta Member ID:Not on file Relation to Subscriber:Not on file Name:SWATHI IRAHETA Subscriber ID:Not on file Address: [address] [place] [address] [place] [address] Payer ID:Not on file Group ID:Not on file Type:Self Pay Address: [place], [place]
[2025-04-24 21:54] LABS: Hematocrit 42.4 % (42.0-52.0); Hemoglobin 13.7 g/dL (14.0-18.0); Immature Granulocyte Percent A 0.5 % (0-0.5); Lymphocytes Absolute Auto 1.25 K/mm3 (0.9-3.2); Mean Corpuscular HGB Conc 32.3 g/dl (32-36); Mean Corpuscular Hemoglobin 26.9 pg (26-34); Mean Corpuscular Volume 83.1 fl (80-100); Nucleated Red Blood Cells Absolute Auto 0.000 K/mm3 (0.0-0.012); Nucleated Red Blood Cells Perc 0.0 % (0.0-0.2); Platelet Count Result 206 k/mm3 (150-375); Red Blood Count 5.10 M/mm3 (4.6-6.20); White Blood Count 12.0 K/mm3 (4.5-10.0)
[2025-04-24 22:06] LABS: Alanine Aminotransferase 26 U/L (6-50); Albumin Level 4.0 g/dL (3.5-5.1); Alkaline Phosphatase 119 U/L (38-126); Anion Gap 5 mmol/L (4-12); Aspartate Amino Transferase 22 U/L (17-59); Bilirubin,Total 1.8 mg/dL (0.2-1.3); Blood Urea Nitrogen 14 mg/dL (9-20); Calcium 9.0 mg/dL (8.4-10.2); Carbon Dioxide 27 mmol/L (22-30); Chloride 100 mmol/L (98-107); Estimated CRCL calculation 141 ml/min; Estimated Glomerular Filt Rate > 60; Glucose 121 mg/dL (65-110); Lipase 30 U/L (23-300); Potassium 3.8 mmol/L (3.4-5.0); Sodium 132 mmol/L (137-145); Total Protein 7.1 g/dL (6.3-8.2)
[2025-04-24 22:31] LABS: Influenza A QL RT-PCR Negative (Negative); Influenza B QL RT-PCR Negative (Negative); RSV RNA, RT-PCR Negative (Negative); SARS-CoV-2 RNA PCR Negative (Negative)
[2025-04-24 23:10] VITALS: BP 145/81; PULSE 85; RESP 16; O2SAT 100
--- OUTSIDE RECORDS SUMMARY | 2025-04-24 23:20 | XMS_ITS | Clinical Summary ---
Author Organization [facility] [email or web address] Address [address] [place] [place] [address] Care Team Providers Care Woodworking Shop Laborer Name Role Phone Unavailable Primary Care Provider Unavailabl e Source Comments [facility] [email or web address],non-owned Affiliates and Associated Physician Practices is amultiple site organization consisting of ambulatory clinics and hospital sitesin [place], [place], [place] and [place]. This disclosure is being madepursuant to the Care Everywhere program and may not contain all information available regarding this patient. Last updated 18.[facility] [email or web address] Social History Tobacco Use Types Packs/Day Years Used Date Smoking Tobacco: Never Assessed Sex and Gender Information Value Date Recorded Sex Assigned at Not on file Legal Sex Male 3:36 PM REFLEXOLOGIST Gender Identity Not on file Sexual Orientation [...] Group ID:Not on file Type:Self Pay Address: [place], [place] CIGNA SELF PAY NO INSURANCE Member Subscriber Plan / Payer (Ef fective for All Dates) Name:Swathi Iraheta Member ID:Not on file Relation to Subscriber:Not on file Name:SWATHI IRAHETA Subscriber ID:Not on file Address: [address] [place] [address] [place] [address] Payer ID:Not on file Group ID:Not on file Type:Self Pay Address: [place], [place] [address] CIGNA SELF PAY NO INSURANCE Member Subscriber Plan / Payer (Ef fective for All Dates) Name:Swathi Iraheta Member ID:Not on file Relation to Subscriber:Not on file Name:SWATHI IRAHETA Subscriber ID:Not on file Address: [address] [place] [address] [place] [address] Payer ID:Not on file Group ID:Not on file Type:Self Pay Address: [place], [place]
--- OUTSIDE RECORDS SUMMARY | 2025-04-24 23:20 | XMS_ITS | Encounter Summary ---
Author Organization [facility] Address [address] [facility] [place] [address] Care Team Providers Care Outboard Motor Inspector Name Role Phone Unavailable Primary Care Provider Unavailabl e Encounter Details Date Type Department Care Team (Late st Contact Info) Description 08/28/2023 Lab Requisition [facility] - Pathology Lab [address] [place] [address] Mario Ventura MD [address] [facility] [address] [place] [address] Illness, unspecified Social History Tobacco Use Types Packs/Day Years Used Date Smoking Tobacco: Never Assessed Sex and Gender Information Value Date Recorded Sex Assigned at Not on file Legal Sex Male 3:36 PM RESPIRATORY PRACTITIONER Gender Identity Not on file Sexual Orientation Not on file documented as of this encounter Plan of Treatment Not on file documented as of this encounter Procedures Procedure Name Priority Date/Time Associated Diagnosis Comments PATHOLOGY TISSUE Routine 08/25/2023 10:4 0 AM RESPIRATORY PRACTITIONER Illness, unspecified documented in this encounter Results * PATHOLOGY TISSUE (08/25/2023 10:40 AM RESPIRATORY PRACTITIONER) Case Report Surgical Pathology Report Case: [id number] Authorizing Provider: Mario Ventura Collected: 08/25/2023 10:40 AM MD John Ordering Location: [facility] - Received: 08/28/2023 12:39 PM [...] will be ordered by the referring institution, [facility]. In case of a c-myc translocation only, this B-cell lymphoma is best classified as Burkitt lymphoma. If c-myc and bcl-2 or bcl-6 are translocated, then, this B-cell lymphoma is best categorized as double-hit lymphoma. 08/30/2023 1:28 PM T [facility] Clinical History Lymphadenopathy. 08/30/2023 1:28 PM [facility] Materials Received Received are 3 slide and 1 block (s) labeled [id number] along with a copy of the outside pathology report. The [place] [address]. All original materials are returned to the referring institution, along with a copy of our final report. 08/30/2023 1:28 PM T [facility] Addendum 1 BRENT is negative. 024 1:28 PM T [facility] Addendum electronically signed by Umberto Sinha MD on 08/30/2023 at 1328 CDT Pathologist Location at [facility] 08/30/2023 1:28 PM CDT [facility] Disclaimer The performance characteristics of all immunohistochemical and indirect immunofluorescence stains (if any) cited in this report were determined by the Histopathology Laboratory of [facility]. Some of these tests were developed [...] attending (teaching) pathologist. 08/30/2023 1:28 PM CDT [facility] Embedded Images 08/30/2023 1:28 PM CDT [facility] Pathology/Cytolo gy SPECIMEN FROM MASS / Unknown 08/25/2023 10:40 AM RESPIRATORY PRACTITIONER 08/28/2023 12:39 PM CDT Mario Ventura MD LAB - PATHO LOGY/CYTOLOGY ORDERABLES Edited Result - Final [facility] [address] [phone] documented in this encounter Visit Diagnoses Diagnosis Illness, unspecified documented in this encounter
--- OUTSIDE RECORDS SUMMARY | 2025-04-24 23:21 | XMS_ITS | Clinical Summary ---
Author Organization [facility] Address [address] [place] [address] Care Team Providers Care Egg Worker Name Role Phone Unavailable Primary Care [...] st Contact Info) Description 07/01/2025 1:20 PM LEAD SHOP OPERATOR Office Visit [facility] Family Medicine - [place] [address] [facility] [address] [place] [phone] Caro Hinds MD [address] [place] [address] Health Maintenance Due Date Last Done Comments [...] patient's age to complete this topic Insurance [facility]
--- OUTSIDE RECORDS SUMMARY | 2025-04-24 23:21 | XMS_ITS ---
Author Organization [facility] Address [address] [place] [address] Care Team Providers Care Metal Wire Technician Name Role Phone Ioana Sousa MD Primary Care Provider + Tony Whitehead MD Unavailable [phone] Active Problems Problem Noted Date Diagnosed Date [...]
--- OUTSIDE RECORDS SUMMARY | 2025-04-24 23:21 | XMS_ITS | Clinical Summary ---
Author Organization [facility] Address [address] [place] [address] Care Team Providers Care Creative Assistant Name Role Phone Ioana Sousa MD Primary Care Provider + Tony Whitehead MD Unavailable [phone] Allergies Active Allergy Reactions Criticality Noted Date [...] GENERAL ORDERABLES Edited Result - Final [facility] Department [place] [address] from Last 3 Months or Most Recently Relevant to Health Maintenance Insurance [facility] CIGNA ALLEGIANCE CIGNA ALLEGIANCE Care Teams Creative Assistant Relationship Specialty Start Date End Date Ioana Sousa MD [address] [place] [address] [facility] [address] [place] [address] PCP - General Family Medicine 09/17/24 Tony Whitehead MD [address] [facility] [address] [place] [address] Consulting Physician Colon and Rectal Surgery 11/18/24
--- OUTSIDE RECORDS SUMMARY | 2025-04-24 23:21 | XMS_ITS | Clinical Summary ---
Author Organization [facility] Address [address] [place] [address] Care Team Providers Care Renal Social Worker Name Role Phone Unavailable Primary Care Provider Unavailabl e Social History Tobacco Use Types Packs/Day Years Used Date Smoking Tobacco: Never Assessed Sex and Gender Information Value Date Recorded Sex Assigned at Not on file Legal Sex Male 9:05 AM IT RISK AND ASSURANCE MANAGER Gender Identity Not on file Sexual Orientation [...]
[2025-04-24] MEDS: PHENAZOPYRIDINE HCL 100 MG TABLET 200 MG PO (23:23)
[2025-04-24] MEDS: cefTRIAXone 2 GM in SODIUM CHLORIDE 0.9% IV 100 ML 200 ML IVPB (23:23)
== END 2025-04-25 00:25 | disposition home or self-care (01) ==
PROVIDERS: Physician Assistant; Emergency Provider Emergency Medicine; PCP Family Medicine
DX: N39.0 Urinary tract infection, site not specified (principal); Z20.822 Contact with and (suspected) exposure to COVID-19; Z86.16 Personal history of COVID-19; Z86.718 Personal history of other venous thrombosis and embolism
CPT/HCPCS: 36415; 74176; 80053; 81001; 83690; 85025; 87077; 87086; 87186; 87637; 96365; 99284; A9270; J0696

== ENCOUNTER 2025-06-17 10:42 | Emergency (ER) | payer OTHER, SELFPAY ==
--- NOTE | 2025-06-17 10:44 | ED.URI ---
HPI - URI/Sore Throat General Chief Complaint: Upper Respiratory Infection Stated Complaint: Sinus/Congestion Time Seen by Provider: 06/17/25 10:43 Source: patient Mode of arrival: ambulatory Limitations: no limitations History of Present Illness HPI Narrative: Jamar is a 54 year old male patient presenting to the clinic today with c/o cough, chest congestion, sinus pressure, nasal congestion, feeling feverish, and short of breath x3 days. He reports he has been taking Advil cold and Sinus and NyQuil at night time. Denies any chest pain. Is a former smoker. Has a productive cough but is swallowing the phlegm. MD elicited complaint: sore throat and nasal congestion Related Data Home Medications ?Medication ?Instructions ?Recorded ?Confirmed ?Last Taken ?Type cetirizine 10 mg capsule (All Day 10 mg PO DAILY PRN 08/02/23 08/04/23 Unknown History Allergy (cetirizine)) Allergies Allergy/AdvReac Type Severity Reaction Status Date / Time erythromycin base AdvReac Mild Nausea Verified 06/17/25 11:06 Review of Systems Review of Systems: Pertinent positives per HPI. Patient denies any rash, headache, visual changes, dizziness, chest pain, palpitations, nausea, vomiting, diarrhea, constipation, abdominal pain, or any urinary issues. [facility] Past Medical History Medical History Blood clot in leg After having COVID and taking Paxlovid in 2021 Healthy adult male Surgical History Surgical History H/O ventral hernia repair Family History Family History Mother Breast cancer in female Social History Social History Smoking status: Former smoker Tobacco type: cigarettes Alcohol intake: current Alcohol use details: socially Substance use: never Living arrangements: with family Gender identity (if verbalized by the patient): Male Comments At the time of my signature, I reviewed and agree with the nursing past medical, surgical, social, and family history. There is no relevant family history pertinent to the patient complaint. Exam Narrative: General: Well-developed, morbidly obese, in no apparent distress Head: Normocephalic, atraumatic Eyes: Pupils equally round and reactive to light bilaterally, EOM intact, sclera and conjunctive clear, no discharge, lids normal Ears: TMs intact and clear, ear canals clear, no drainage, grossly hearing normal. Nose: Nares patent, green nasal discharge, mild inflammation, no sinus tenderness. Mouth: Oral pharynx red without lesions or masses, good dentition, MMM. Postnasal drip Neck: Supple, trachea midline, no enlargement of anterior or posterior cervical nodes, no thyroid masses or goiter palpable. Cardio: Regular rate and rhythm, s1 and s2 normal, no murmur appreciated. Resp: Clear to auscultation bilaterally, no rhonchi, rales, wheezing or rubs Course Course Level of Care: Express Care Visit Vital Signs Vital signs: Vital Signs Temperature 35.9 C L 06/17/25 10:53 Pulse Rate 92 06/17/25 10:53 Respiratory Rate 16 06/17/25 10:53 Blood Pressure 133/94 H 06/17/25 10:53 Pulse Oximetry 95 06/17/25 10:53 Oxygen Delivery Room Air 06/17/25 10:53 Temperature 35.9 C L 06/17/25 10:53 Pulse Rate 92 06/17/25 10:53 Respiratory Rate 16 06/17/25 10:53 Blood Pressure 133/94 H 06/17/25 10:53 Pulse Oximetry 95 06/17/25 10:53 Oxygen Delivery Room Air 06/17/25 10:53 [facility] Narrative Medical decision making narrative: At the time of visit patient is resting comfortably on the exam table. Patient appears to be nontoxic. C/o cough, chest congestion, sinus pressure, nasal congestion, feeling feverish, and short of breath x3 days. He reports he has been taking Advil cold and Sinus and NyQuil at night time. Denies any chest pain. Is a former smoker. Has a productive cough but is swallowing the phlegm. On exam patient is morbidly obese, bilateral TMs intact and clear, green nasal drainage, mild anterior turbinate inflammation, oral pharynx red without cervical lymphadenopathy, lung sounds are clear, heart rates regular rate and rhythm. COVID, flu, and strep test were ordered. Labs: COVID, influenza, and strep test were performed. Strep test was negative. We will send strep for culture. COVID and influenza testing were negative as well. Plan: I suspect patient has URI/pharyngitis/viral syndrome. Work note was given. Supportive measures were discussed with the patient and they voiced understanding discharge instructions and agrees to treatment plan. Return precautions reviewed Differential Diagnosis Differential Diagnosis: Differential diagnostic considerations for upper respiratory infection include upper respiratory infection, croup, otitis media, sinusitis, viral infection, bronchitis, influenza, pharyngitis, strep, uvulitis. Lab Data Labs: Lab Results 06/17/25 Range/Units 11:05 POC Influenza A Ag Negative (Negative) POC Influenza B Ag Negative (Negative) POC SARS CoV-2 Ag Negative (Negative) POC Grp A Strep Screen Negative (Negative) Discharge Plan Discharge Clinical Impression: Viral infection Upper respiratory infection Qualifiers: URI type: unspecified URI Qualified Code(s): J06.9 - Acute upper respiratory infection, unspecified Pharyngitis Qualifiers: Pharyngitis/tonsillitis etiology: unspecified etiology Qualified Code(s): J02.9 - Acute pharyngitis, unspecified Patient Disposition: Home Condition: Stable Instructions: Antibiotic Form, Pharyngitis (ED), Viral Syndrome (ED), Cold Symptoms (ED) Additional Instructions: COVID, influenza, and strep test were all negative in the clinic today. We will send strep for culture if this comes back positive we will contact him place you on antibiotics at that time Lung sounds are clear in those no sign of bacterial infection in the clinic today. May take DayQuil/NyQuil for cold/flu symptoms Increase fluids and stay well hydrated May take Tylenol or motrin as directed on bottle for pain/fever May use Flonase 1 spray in each nare daily May take OTC antihistamines such as Zyrtec or Claritin daily as directed on bottle May apply Vicks vapor rub to chest to open sinuses Sinus rinses for congestion Cepacol spray, cough drops, throat lozenges, warm tea with honey/lemon, gargle salt water to soothe throat BRAT diet for diarrhea Clear liquids x 24 hours then advance as tolerated for nausea/vomiting Go to the ED if you develop a worsening in your condition- high fever not controlled by Tylenol or Motrin, dehydration, weakness, lethargy, shortness of breath, or chest pain. Follow up with your PCP in 3-5 days if symptoms persist. Patient Language: Faroese Prescriptions: No Action All Day Allergy (cetirizine) 10 mg capsule 10 mg PO DAILY PRN Follow-up/Referrals: Estefani,Abel Mendes MD [Primary Care Provider, Unknown] Stand Alone Forms: Work/School Release IP Time of Disposition: 11:26 Quality NIHSS Nursing Documentation ED NIHSS nursing documentation: reviewed/agree
[2025-06-17 10:53] VITALS: BP 133/94; PULSE 92; RESP 16; TEMP 35.9; O2SAT 95
[2025-06-17 11:22] LABS: EDCOVIDSCREEN Negative (Negative); EDINFLUASCREEN Negative (Negative); EDINFLUBSCREEN Negative (Negative); EDSTREPNEGPOS1 Negative (Negative)
== END 2025-06-17 11:30 | disposition home or self-care (01) ==
PROVIDERS: Emergency Provider Nurse Practitioner Family; PCP Family Medicine
DX: B34.9 Viral infection, unspecified (principal); J06.9 Acute upper respiratory infection, unspecified; Z20.822 Contact with and (suspected) exposure to COVID-19; Z87.891 Personal history of nicotine dependence
CPT/HCPCS: 87081; 87426; 87804; 87880; 99213; G0463